=== PATIENT | female | born 1930 | race Caucasian/White ===

== ENCOUNTER 2017-01-26 07:54 | Day surgery (SDC) | payer MEDICARE, BC ==
[2017-01-26] MEDS ORDERED: Midazolam 1 MG/ML 2 ML SDV IV ONE (07:55)
[2017-01-26] MEDS ORDERED: Dexamethasone 4 MG/ML SDV IV ONE (07:55)
[2017-01-26] MEDS ORDERED: Sodium Chloride 0.9% 10 ML Syringe IV ONE (07:55)
[2017-01-26] MEDS ORDERED: Lidocaine 1% 30 ML SDV ONE (11:21)
[2017-01-26] MEDS ORDERED: Apraclonidine 0.5% Ophth Soln 5 ML Bot EYELF ONE (11:22)
[2017-01-26] MEDS ORDERED: Tetracaine HCl/PF 0.5% 4 ML Bottle EYELF ONE (11:22)
[2017-01-26] MEDS ORDERED: Povidone-Iodine 5% Sterile Ophth Soln 30 ML Bottle EYELF ONE ×2 (11:22→11:30)
[2017-01-26] MEDS ORDERED: Diclofenac Sodium 0.1% Ophth Soln 5 ML Bottle EYELF ONE (11:22)
[2017-01-26] MEDS ORDERED: Balanced Salt Solution Ophth Irrig 500 ML Bottle IOCULAR ONE (11:23)
[2017-01-26] MEDS ORDERED: Dexamethasone/Neomycin/Polymyxin B Ophth Oint 3.5 GM Tube EYELF ONE (11:23)
[2017-01-26] MEDS ORDERED: Vancomycin 500 MG SDV EYELF ONE (11:23)
[2017-01-26] MEDS ORDERED: Chondroitin Sulfate/Hyaluronate Sodium Ophth Inj 0.75 ML Syringe EYELF ONE (11:23)
[2017-01-26] MEDS ORDERED: Moxifloxacin 0.5% Ophth Soln 3 ML Bottle EYELF ONE (11:30)
[2017-01-26] MEDS ORDERED: Sodium Chloride 0.9% 10 ML Syringe FLUSH PRN (11:30)
[2017-01-26] MEDS ORDERED: Phenylephrine 10% Ophth Soln 5 ML Bot EYELF PRN (11:30)
[2017-01-26] MEDS ORDERED: Timolol Maleate 0.5% Ophth Soln 5 ML Bottle EYELF ONE (11:30)
[2017-01-26] MEDS ORDERED: Ondansetron 4 MG/2 ML SDV IVPUSH PRN (11:30)
[2017-01-26] MEDS ORDERED: Proparacaine 0.5% Ophth Soln 15 ML Bottle EYELF ONE (11:30)
[2017-01-26] MEDS ORDERED: Cataract Ophth Solution EYELF ONE (11:30)
[2017-01-26] MEDS ORDERED: Phenylephrine 10% Ophth Soln 5 ML Bot EYELF ONE (11:30)
[2017-01-26] MEDS ORDERED: Acetaminophen 325 MG Tab PO PRN (11:30)
--- NOTE | 2017-01-26 12:50 | OR ---
DATE: 01/26/2017 PREOPERATIVE DIAGNOSIS: Cataract, left eye. POSTOPERATIVE DIAGNOSIS: Cataract, left eye. PROCEDURE: Extracapsular cataract extraction with intraocular lens implant, left eye. ANESTHESIA: Topical/local MAC. COMPLICATIONS: None. INDICATION: Visually significant symptomatic cataract. Ms. Gallego was seen in the clinic. Clinical examination revealed mixed nuclear and central cortical cataract. She is symptomatic with complaints of blurred vision, difficulty reading, cannot see numbers. I explained options. I offered cataract surgery and I explained risks including, but not limited to infection, retinal detachment, loss of vision, need for additional surgery, and risks associated with anesthesia. We discussed implant options. She has requested a monofocal implant. She is symptomatic and motivated to proceed. OPERATIVE DESCRIPTION: After informed consent was obtained and the risks, benefits, and alternatives were explained, the patient was brought to the operative suite and topical anesthesia was administered. The patient was then prepped and draped in the sterile fashion and attention was placed on the left eye. A sterile lid speculum was placed into the left eye to allow operative exposure. A full-thickness paracentesis was made in the temporal portion of the operative eye. Preservative-free lidocaine 0.1 mL was injected into the anterior chamber followed by viscoelastic. A full-thickness corneal incision was then made into the anterior chamber. A bent needle cystotome was used to create a small homar in the anterior capsule. The capsulorrhexis forceps were then used to create a 360-degree curvilinear capsulorrhexis. The nucleus was then removed using a phacoemulsification handpiece and the remaining cortical material was then removed with irrigation and aspiration handpiece. Following removal of the cortical material, the capsular bag was then inspected and noted to be free of any holes or tears. Viscoelastic was then injected into the capsular bag and the intraocular lens was inserted into the capsular bag. The viscoelastic material was then removed from both the anterior and posterior chambers and from behind the IOL. The lens and capsular bag were then reinspected. The IOL was well centered and the capsular bag intact. The wound and paracentesis sites were inspected and hydrated with balanced saline solution. Both were found to be self- sealing. The intraocular pressure was assessed digitally and found to be within normal range. A good red reflex was noted at the completion of the procedure. No complications occurred during the operation. At the completion of the procedure, Maxitrol, Voltaren, and Iopidine drops were placed into the operative eye. A sterile eye shield was placed over the operative eye and the patient was transported to the postoperative recovery area having tolerated the procedure well. Postoperative instructions were given along with a postoperative appointment. The patient was advised to call with any questions or concerns. [facility] /[id number]
--- NOTE | 2017-01-26 13:04 | PCM.SN ---
- Free Text/Narrative Note: Post op. Pt discharged home after discharge criteria noted. No anesthesia concerns noted
== END 2017-01-26 13:20 | disposition home or self-care (01) ==
LOC: DL.SDS 07:54
PROVIDERS: ATTEND Ophthalmology
DX: H25.12 Age-related nuclear cataract, left eye (principal); H25.042 Posterior subcapsular polar age-related cataract, left eye; I10 Essential (primary) hypertension; E03.9 Hypothyroidism, unspecified; F41.9 Anxiety disorder, unspecified; F32.9 Major depressive disorder, single episode, unspecified; E78.5 Hyperlipidemia, unspecified; Z79.82 Long term (current) use of aspirin; Z79.899 Other long term (current) drug therapy; Z88.8 Allergy status to other drugs, medicaments and biological substances
CPT/HCPCS: 00142; 66984; A9270; C1780; J1100; J2250; J3370; J7050

== ENCOUNTER 2017-02-23 10:30 | Day surgery (SDC) | payer MEDICARE, BC ==
[~2017-02-23 10:30] MED LIST: Acetaminophen 325 MG Tab PO PRN; Cataract Ophth Solution EYERT ONE; Moxifloxacin 0.5% Ophth Soln 3 ML Bottle EYERT ONE; Ondansetron 4 MG/2 ML SDV IVPUSH PRN; Phenylephrine 10% Ophth Soln 5 ML Bot EYERT ONE; Phenylephrine 10% Ophth Soln 5 ML Bot EYERT PRN; Povidone-Iodine 5% Sterile Ophth Soln 30 ML Bottle EYERT ONE; Proparacaine 0.5% Ophth Soln 15 ML Bottle EYERT ONE; Sodium Chloride 0.9% 10 ML Syringe FLUSH PRN; Timolol Maleate 0.5% Ophth Soln 5 ML Bottle EYERT ONE
[2017-02-23] MEDS ORDERED: Midazolam 1 MG/ML 2 ML SDV IV ONE (10:31)
[2017-02-23] MEDS ORDERED: Dexamethasone 4 MG/ML SDV IV ONE (10:31)
[2017-02-23] MEDS ORDERED: Sodium Chloride 0.9% 10 ML Syringe IV ONE (10:31)
[2017-02-23] MEDS ORDERED: Lidocaine 1% 30 ML SDV ONE (12:01)
[2017-02-23] MEDS ORDERED: Tetracaine HCl/PF 0.5% 4 ML Bottle EYERT ONE (12:02)
[2017-02-23] MEDS ORDERED: Dexamethasone/Neomycin/Polymyxin B Ophth Oint 3.5 GM Tube EYERT ONE (12:02)
[2017-02-23] MEDS ORDERED: Diclofenac Sodium 0.1% Ophth Soln 5 ML Bottle EYERT ONE (12:02)
[2017-02-23] MEDS ORDERED: Povidone-Iodine 5% Sterile Ophth Soln 30 ML Bottle EYERT ONE (12:02)
[2017-02-23] MEDS ORDERED: Apraclonidine 0.5% Ophth Soln 5 ML Bot EYERT ONE (12:02)
[2017-02-23] MEDS ORDERED: Balanced Salt Solution Ophth Irrig 500 ML Bottle IOCULAR ONE (12:03)
[2017-02-23] MEDS ORDERED: Vancomycin 500 MG SDV EYERT ONE (12:03)
[2017-02-23] MEDS ORDERED: Chondroitin Sulfate/Hyaluronate Sodium Ophth Inj 0.75 ML Syringe EYERT ONE (12:03)
--- NOTE | 2017-02-23 14:20 | OR ---
DATE: 02/23/2017 PREOPERATIVE DIAGNOSIS: Complex cataract, right eye, with small pupil/Malyugin ring. POSTOPERATIVE DIAGNOSIS: Complex cataract, right eye, with small pupil/Malyugin ring. PROCEDURE: Extracapsular cataract extraction with intraocular lens implant, right eye; complex cataract of right eye with small pupil/Malyugin ring. ANESTHESIA: Topical/local MAC. COMPLICATIONS: None. INDICATION: Mrs. Gallego was seen in the clinic. Her examination reveals visually significant cataract. She is unhappy with her vision and requested cataract surgery. I explained risks preoperatively including, but not limited to infection, retinal detachment, loss of vision, need for additional surgery, lens subluxation secondary to pseudoexfoliation and risks associated with anesthesia amongst others. We discussed implant options. She requested a monofocal implant. She voiced an understanding with respect to risks and wished to proceed. OPERATIVE DESCRIPTION: After informed consent was obtained and the risks, benefits, and alternatives were explained, the patient was brought to the operative suite and topical anesthesia was administered. The patient was then prepped and draped in the sterile fashion and attention was placed on the right eye. A sterile lid speculum was placed into the right eye to allow operative exposure. A full-thickness paracentesis was made in the temporal portion of the operative eye. Preservative-free lidocaine 0.1 mL was injected into the anterior chamber followed by viscoelastic. A full-thickness corneal incision was then made into the anterior chamber. A bent needle cystotome was used to create a small homar in the anterior capsule. The capsulorrhexis forceps were then used to create a 360-degree curvilinear capsulorrhexis. The nucleus was then removed using a phacoemulsification handpiece and the remaining cortical material was then removed with irrigation and aspiration handpiece. Following removal of the cortical material, the capsular bag was then inspected and noted to be free of any holes or tears. Viscoelastic was then injected into the capsular bag and the intraocular lens was inserted into the capsular bag. The viscoelastic material was then removed from both the anterior and posterior chambers and from behind the IOL. The lens and capsular bag were then reinspected. The IOL was well centered and the capsular bag intact. The wound and paracentesis sites were inspected and hydrated with balanced saline solution. Both were found to be self- sealing. The intraocular pressure was assessed digitally and found to be within normal range. A good red reflex was noted at the completion of the procedure. No complications occurred during the operation. At the completion of the procedure, Maxitrol, Voltaren, and Iopidine drops were placed into the operative eye. A sterile eye shield was placed over the operative eye and the patient was transported to the postoperative recovery area having tolerated the procedure well. Postoperative instructions were given along with a postoperative appointment. The patient was advised to call with any questions or concerns. [facility] /[id number]
== END 2017-02-23 13:53 | disposition home or self-care (01) ==
LOC: DL.SDS 10:30
PROVIDERS: ATTEND Ophthalmology
DX: H26.9 Unspecified cataract (principal); F41.9 Anxiety disorder, unspecified; F32.9 Major depressive disorder, single episode, unspecified; I10 Essential (primary) hypertension; E03.9 Hypothyroidism, unspecified; E78.5 Hyperlipidemia, unspecified; Z79.82 Long term (current) use of aspirin; Z79.899 Other long term (current) drug therapy; Z88.8 Allergy status to other drugs, medicaments and biological substances
CPT/HCPCS: 66984; A9270; J1100; J2250; J3370; J7050; 00142; C1780

== ENCOUNTER 2018-03-02 12:44 | Emergency (ER) | payer MEDICARE, BC ==
--- NOTE | 2018-03-02 14:35 | EDM.PDOC ---
ED HPI GENERAL MEDICAL PROBLEM - General Chief Complaint: General Stated Complaint: INCONTINENCE, OTHER PROBLEMS [id number] Time Seen by Provider: 03/02/18 14:25 Source of Information: Reports: Patient History Limitations: Reports: No Limitations - History of Present Illness INITIAL COMMENTS - FREE TEXT/NARRATIVE: This 87 yo female patient reports to the ED due to feeling abnormal. The patient reports she was going to bathroom this morning when she felt like something was not right. The patient reports she has not been urinating normally today, but the patient does not think she is constipated. The patient reports her lower abdomen feels full, but does not feel like she can go to the bathroom. Onset: Today Duration: Constant Location: Reports: Abdomen Quality: Reports: Ache, Dull Severity: Moderate Improves with: Reports: None Worsens with: Reports: None Context: Reports: Other Associated Symptoms: Reports: No Other Symptoms - Related Data Allergies Allergy/AdvReac Type Severity Reaction Status Date / Time amoxicillin [From Augmentin] AdvReac Diarrhea Verified 03/02/18 13:54 clavulanic acid AdvReac Diarrhea Verified 03/02/18 13:54 [From Augmentin] simvastatin AdvReac Muscle Verified 03/02/18 13:54 Aches Home Meds: Home Meds Ascorbic Acid 500 mg PO DAILY 01/12/17 [History] Aspirin [Halfprin] 81 mg PO DAILY 01/12/17 [History] Biotin 5,000 mcg PO DAILY 01/12/17 [History] Calcium Carbonate/Vitamin D3 [Calcium 600-Vit D3 400 Tablet] 1 tab PO BID [History] Cetirizine [ZyrTEC] 5 mg PO DAILY 01/12/17 [History] Cyanocobalamin (Vitamin B-12) [Vitamin B-12] 100 mcg PO DAILY 01/12/17 [History] Escitalopram [Lexapro] 10 mg PO BEDTIME 01/12/17 [History] Mnetajgn-Lfkxlvv-Usdu 149-Hyal [Glucosamine-Chondr Complex Tab] 1,500 mg PO DAILY 01/12/17 [History] Levothyroxine [Synthroid] 50 mcg PO ACBREAKFAST 01/12/17 [History] Multivitamin [Daily Eliona] 1 tab PO DAILY 01/12/17 [History] [place]-3/DHA/Epa/Fish Oil [[place]-3 Fish Oil 1,000 MG Sfgl] 1,000 mg PO BID [History] Moxifloxacin HCl [Moxifloxacin] 1 drop EYEBOTH QID 01/25/17 [History] Ketorolac [Acular 0.5% Ophth Soln] 1 drop EYERT ASDIRECTED 02/22/17 [History] Stemenhance Se3 2 cap PO DAILY 02/22/17 [History] prednisoLONE Acetate [Prednisolone Acetate] 1 drop EYERT ASDIRECTED 02/22/17 [ History] Past Medical History HEENT History: Reports: Cataract, Impaired Vision Cardiovascular History: Reports: High Cholesterol, Hypertension Gastrointestinal History: Reports: Colon Polyp, Other (See Below) Other Gastrointestinal History: S/P TUBULAR ADENOMA, BENIGN Genitourinary History: Reports: None 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 (See Below) Other SHEAR GRINDER OPERATOR History: FIBROCYSTIC BREAST DISEASE Musculoskeletal History: Reports: Arthritis, Osteoarthritis, Osteoporosis Neurological History: Reports: None Psychiatric History: Reports: Anxiety, Depression Endocrine/Metabolic History: Reports: Hypothyroidism Hematologic History: Reports: None Immunologic History: Reports: None Oncologic (Cancer) History: Reports: None Dermatologic History: Reports: None - Infectious Disease History Infectious Disease History: Reports: Chicken Pox, Measles, Mumps - Past Surgical History Head Surgeries/Procedures: Reports: None HEENT Surgical History: Reports: None, Cataract Surgery, Other (See Below) Other HEENT Surgeries/Procedures: LENS IMPLANT IN LEFT EYE GI Surgical History: Reports: Appendectomy, Colonoscopy, Polypectomy Female Surgical History: Reports: Hysterectomy, Salpingo-Oophorectomy Social & Family History - Family History Family Medical History: Noncontributory HEENT: Reports: Cataract - Tobacco Use Smoking Status *Q: Never Smoker - Caffeine Use Caffeine Use: Reports: Coffee Caffeine Use Comment: 8oz - Recreational Drug Use Recreational Drug Use: No ED ROS GENERAL - Review of Systems Review Of Systems: ROS reveals no pertinent complaints other than HPI. ED EXAM, GENERAL - Physical Exam Exam: See Below Exam Limited By: No Limitations General Appearance: Alert, WD/WN, Mild Distress Eye Exam: Bilateral Eye: EOMI, Normal Inspection, PERRL Ears: Normal External Exam, Normal Canal, Hearing Grossly Normal, Normal TMs Nose: Normal Inspection, Normal Mucosa, No Blood Throat/Mouth: Normal Inspection, Normal Lips, Normal Teeth, Normal Gums, Normal Oropharynx, Normal Voice, No Airway Compromise Head: Atraumatic, Normocephalic Neck: Normal Inspection, Supple, Non-Tender, Full Range of Motion Respiratory/Chest: No Respiratory Distress, Lungs Clear, Normal Breath Sounds, No Accessory Muscle Use, Chest Non-Tender Cardiovascular: Normal Peripheral Pulses, Regular Rate, Rhythm, No Edema, No Gallop, No JVD, No Murmur, No Rub GI/Abdominal: No Organomegaly, No Distention, No Abnormal Bruit, No Mass, Pelvis Stable, Tender (lower abdomen (diffuse)) (Female) Exam: Deferred Rectal (Female) Exam: Deferred Back Exam: Normal Inspection, Full Range of Motion, NT Extremities: Normal Inspection, Normal Range of Motion, Non-Tender, Normal Capillary Refill, No Pedal Edema Neurological: Alert, Oriented, CN II-XII Intact, Normal Cognition, Normal Gait, Normal Reflexes, No Motor/Sensory Deficits Psychiatric: Normal Affect, Normal Mood Skin Exam: Warm, Dry, Intact, Normal Color, No Rash Lymphatic: No Adenopathy Course - Vital Signs Last Recorded V/S: Last Vital Signs Temp 36.9 C 03/02/18 13:49 Pulse 93 03/02/18 13:49 Resp 14 03/02/18 13:49 BP 189/87 H 03/02/18 14:09 Pulse Ox 100 03/02/18 13:49 - Orders/Labs/Meds Orders: Active Orders 24 hr Category Date Time Status Bladder Scan [RC] ASDIRECTED Care 03/02/18 14:29 Ordered CULTURE URINE [RM] Urgent Lab 03/02/18 14:35 Received Labs: Laboratory Tests 03/02/18 03/02/18 03/02/18 Range/Units 14:30 14:30 14:35 WBC 13.6 H (5.0-10.0) 10^3/uL RBC 4.22 (4.2-5.4) 10^6/uL Hgb 12.9 (12.0-16.0) g/dL Hct 39.8 (37.0-47.0) % MCV 94.3 (80-100) fL MCH 30.6 (27.0-34.0) pg MCHC 32.4 L (33.0-35.0) g/dL Plt Count 237 (150-450) 10^3/uL Neut % (Auto) 80.9 H (42.2-75.2) % Lymph % (Auto) 11.3 L (20.5-50.1) % [place] % (Auto) 7.3 (2-8) % Eos % (Auto) 0.4 L (1.0-3.0) % Baso % (Auto) 0.1 (0.0-1.0) % Sodium 134 L (135-145) mmol/L Potassium 4.1 (3.6-5.0) mmol/L Chloride 95 L (101-111) mmol/L Carbon Dioxide 26.0 (21.0-31.0) mmol/L Anion Gap 17.1 BUN 11 (7-18) mg/dL Creatinine 0.6 (0.6-1.3) mg/dL Est Cr Clr Drug Dosing 46.14 mL/min Estimated GFR (MDRD) > 60 BUN/Creatinine Ratio 18.33 Glucose 89 (74-105) mg/dL Calcium 8.9 (8.4-10.2) mg/dl Total Bilirubin 1.5 H (0.2-1.0) mg/dL AST 32 (10-42) IU/L ALT 21 (10-60) IU/L Alkaline Phosphatase 68 (42-121) IU/L Total Protein 7.3 (6.7-8.2) g/dl Albumin 4.1 (3.2-5.5) g/dl Globulin 3.2 Albumin/Globulin Ratio 1.28 Urine Color Yellow (YELLOW) Urine Appearance Cloudy (CLEAR) Urine pH 8.0 (5.0-9.0) Ur Specific [place] 1.025 (1.005-1.030) Urine Protein 30 H (NEGATIVE) Urine Glucose (UA) Negative (NEGATIVE) Urine Ketones 15 H (NEGATIVE) Urine Occult Blood Moderate H (NEGATIVE) Urine Nitrite Negative (NEGATIVE) Urine Bilirubin Negative (NEGATIVE) Urine Urobilinogen 0.2 (0.2-1.0) mg/dL Ur Leukocyte Esterase Trace H (NEGATIVE) Urine RBC 20-30 H /HPF Urine WBC 30-40 H (0-5/HPF) /HPF Ur Epithelial Cells Few /HPF Amorphous Sediment Moderate H (0/HPF) /HPF Urine Bacteria Moderate H (0-FEW/HPF) /HPF Urine Mucus Few H /LPF Departure - Departure Time of Disposition: 15:59 Disposition: Home, Self-Care 01 Condition: Fair Clinical Impression: UTI (urinary tract infection) Qualifiers: Urinary tract infection type: site unspecified Hematuria presence: with hematuria Qualified Code(s): N39.0 - Urinary tract infection, site not specified ; R31.9 - Hematuria, unspecified - Discharge Information *PRESCRIPTION DRUG MONITORING PROGRAM REVIEWED*: Not Applicable *COPY OF PRESCRIPTION DRUG MONITORING REPORT IN PATIENT [place]: Not Applicable Instructions: Urinary Tract Infection, Adult, [id number] Forms: ED Department Discharge Care Plan Goals: The patient was advised of the examination, lab and x-ray results during the visit. The patient was discharged with a script for Macrobid (100 mg) #10 to take 1 by mouth 2 times per day for 5 days. The patient was encouraged to increase her oral fluid intake. If the patient has any additional symptoms or concern, the patient should either visit her primary care facility or return to the emergency department. - My Orders Last 24 Hours: My Active Orders 03/02/18 14:29 Bladder Scan [RC] ASDIRECTED 03/02/18 14:35 CULTURE URINE [RM] Urgent - Assessment/Plan Last 24 Hours: My Active Orders 03/02/18 14:29 Bladder Scan [RC] ASDIRECTED 03/02/18 14:35 CULTURE URINE [RM] Urgent
[2018-03-02 14:56] LABS: ANION GAP 17.1; CHLORIDE,CL 95 mmol/L (101-111); SODIUM,NA 134 mmol/L (135-145)
== END 2018-03-02 16:09 | disposition home or self-care (01) ==
LOC: DL.ED 12:44
DX: N39.0 Urinary tract infection, site not specified (principal); E78.00 Pure hypercholesterolemia, unspecified; I10 Essential (primary) hypertension; F41.9 Anxiety disorder, unspecified; F32.9 Major depressive disorder, single episode, unspecified; E03.9 Hypothyroidism, unspecified; Z88.1 Allergy status to other antibiotic agents; Z88.8 Allergy status to other drugs, medicaments and biological substances; Z79.82 Long term (current) use of aspirin; Z79.899 Other long term (current) drug therapy
CPT/HCPCS: 36415; 74019; 80053; 81001; 85025; 87086; 87088; 87186; 99284

== ENCOUNTER 2020-10-09 05:29 | Day surgery (SDC) | payer MEDICARE, BC ==
[2020-10-09] MEDS ORDERED: Midazolam 1 MG/ML 2 ML SDV IV ONE ×3 (05:30→06:46)
[2020-10-09] MEDS ORDERED: fentaNYL 100 MCG/2 ML SDV IV ONE ×2 (05:30→06:42)
[2020-10-09] MEDS ORDERED: Dextrose 5%-0.45% NaCl 1,000 ML IV SCH (06:10)
[2020-10-09] MEDS ORDERED: fentaNYL 100 MCG/2 ML SDV ONE (06:12)
[2020-10-09] MEDS ORDERED: Midazolam 1 MG/ML 2 ML SDV ONE (06:12)
--- NOTE | 2020-10-09 07:25 | OR ---
DATE: 10/09/2020 PROCEDURE: Esophagogastroduodenoscopy. INSTRUMENT USED: [id number]-HQ190 Olympus video panendoscope. PREMEDICATIONS: No oral or topical anesthesia used. Fentanyl 50 mcg intravenous, Versed 1 mg intravenous. Nasal O2 cannula. The procedure was done under pulse oximetry, BP recording, and cardiac surgeon. INDICATION: The patient with persistent high dysphagia, unexplained. Esophagogastroduodenoscopy is performed for detection of any active erosive lesions, Marc esophagus and/or malignancy also under consideration, esophageal dilatations if indicated, endoscopic hemostasis therapy if needed. The scope was passed with ease. Adequate visualization of the esophagus was made from proximal to distal areas. No upper esophageal lesions identified. No distal esophageal stricture. No uphill or downhill esophageal varices. No Mary-Grigsby tear. No evidence of erosive esophagitis by Manteno criteria. No esophageal polyp or tumor identified. Z-line was seen at around 37 cm distal to the oral verge. Small sliding hiatal hernia was noted. No proximal gastric varices noted. Gastric fundus examination by retroflexion showed diminutive benign-appearing polyp. No gastric ulcer, malignant mass, or vascular ectasia identified. Duodenal bulb showed no ulcer. Visualized second part of the duodenum was unremarkable. No bleeding was noted from any of the visualized areas at the completion of examination. Photographs were taken of the duodenal bulb, gastric antrum, fundus, and distal esophagus. IMPRESSION: 1. Small sliding hiatal hernia. 2. Diminutive gastric fundus polyp. The patient tolerated the procedure well. [facility] /[id number]
== END 2020-10-09 08:58 | disposition home or self-care (01) ==
LOC: DL.ENDO 05:29
PROVIDERS: ATTEND Internal Medicine Gastroenterology
DX: K31.7 Polyp of stomach and duodenum (principal); K44.9 Diaphragmatic hernia without obstruction or gangrene; Z88.1 Allergy status to other antibiotic agents; Z88.8 Allergy status to other drugs, medicaments and biological substances
CPT/HCPCS: 43235; J2250; J3010; J7042

== ENCOUNTER 2021-03-27 11:41 | Emergency (ER) | payer MEDICARE, BC ==
[2021-03-27] MEDS ORDERED: Sodium Chloride 0.9% 10 ML Syringe FLUSH PRN (11:49)
[2021-03-27] MEDS ORDERED: Sodium Chloride 0.9% 1,000 ML IV ONE (12:00)
[2021-03-27 12:29] LABS: AMPHETAMINES,URINE NEGATIVE (NEGATIVE); BARBITURATES,URINE NEGATIVE (NEGATIVE); BENZODIAZEPINE,URINE NEGATIVE (NEGATIVE); MDMA (ECSTASY), URINE NEGATIVE (NEGATIVE); METHADONE,URINE NEGATIVE (NEGATIVE); METHAMPHETAMINES,URINE NEGATIVE (NEGATIVE); OPIATES,URINE NEGATIVE (NEGATIVE); OXYCODONE,URINE NEGATIVE (NEGATIVE); PHENCYCLIDINE,URINE NEGATIVE (NEGATIVE); TCA,URINE NEGATIVE (NEGATIVE)
[2021-03-27 12:44] LABS: ANION GAP 11.1 mEq/L (7-13); CHLORIDE,CL 99 mmol/L (98-107); SODIUM,NA 135 mmol/L (136-145)
== END 2021-03-27 13:45 | disposition home or self-care (01) ==
LOC: DL.ED 11:41
DX: E86.0 Dehydration (principal); E78.00 Pure hypercholesterolemia, unspecified; I10 Essential (primary) hypertension; M19.90 Unspecified osteoarthritis, unspecified site; E03.9 Hypothyroidism, unspecified; Z88.0 Allergy status to penicillin; Z88.8 Allergy status to other drugs, medicaments and biological substances; Z79.899 Other long term (current) drug therapy
CPT/HCPCS: 36415; 70450; 80053; 80305-QW; 80307; 81003; 83605; 83690; 83735; 84443; 85025; 86140; 99285-25; J7030

== ENCOUNTER 2021-11-28 09:46 | Emergency (ER) | payer MEDICARE, BC ==
[2021-11-28] MEDS ORDERED: fentaNYL 100 MCG/2 ML SDV ONE (10:40)
[2021-11-28] MEDS ORDERED: fentaNYL 100 MCG/2 ML SDV IVPUSH ONE (10:40)
[2021-11-28 10:46] LABS: ANION GAP 10.1 mEq/L (7-13)
[2021-11-28] MEDS ORDERED: hydrALAZINE 20 MG/ML SDV IVPUSH ONE (10:50)
[2021-11-28 10:55] LABS: PTT,PARTIAL THROMBOPLSTIN TIME 23.2 SEC (22.0-34.0)
[2021-11-28] MEDS ORDERED: Lidocaine 2% with EPINEPHrine 1:200,000 20 ML SDV INJECT ONE (11:00)
[2021-11-28] MEDS ORDERED: hydrALAZINE 20 MG/ML SDV ONE (11:01)
[2021-11-28] MEDS ORDERED: Silver Nitrate Applicator Each ONE (11:06)
[2021-11-28] MEDS ORDERED: Lidocaine 2% with EPINEPHrine 1:200,000 20 ML SDV ONE (11:08)
[2021-11-28] MEDS ORDERED: Ferric Subsulfate Topical Soln 8 GM (8 ML) Bottle TOP ONE (11:11)
[2021-11-28] MEDS ORDERED: Ferric Subsulfate Topical Soln 8 GM (8 ML) Bottle ONE (11:12)
[2021-11-28] MEDS ORDERED: Acetaminophen 500 MG Tab PO ONE (13:39)
== END 2021-11-28 14:30 | disposition home or self-care (01) ==
LOC: DL.ED 09:46
DX: S01.01XA Laceration without foreign body of scalp, initial encounter (principal); I10 Essential (primary) hypertension; E78.00 Pure hypercholesterolemia, unspecified; Z88.8 Allergy status to other drugs, medicaments and biological substances; Z88.0 Allergy status to penicillin; Z79.899 Other long term (current) drug therapy; Z90.49 Acquired absence of other specified parts of digestive tract; Z90.710 Acquired absence of both cervix and uterus; W18.39XA Other fall on same level, initial encounter
CPT/HCPCS: 12001; 36415; 70450; 80053; 83605; 83735; 85025; 85610; 85730; 96374; 96375; 99284; 99284-25; A9270-GY; J0360; J3010

== ENCOUNTER 2021-12-15 10:53 | Observation (INO) | payer MEDICARE, BC ==
[2021-12-15 11:47] LABS: ANION GAP 11.7 mEq/L (7-13); CHLORIDE,CL 100 mmol/L (98-107); SODIUM,NA 133 mmol/L (136-145)
[2021-12-15 12:03] LABS: ESTIMATED GFR 42 mL/min (>=60)
[2021-12-15] MEDS ORDERED: Sodium Chloride 0.9% 500 ML IV SCH (12:30)
[2021-12-15] MEDS ORDERED: Loperamide 2 MG Cap PO PRN (15:54)
[2021-12-15] MEDS ORDERED: Acetaminophen 325 MG Tab PO PRN (17:31)
[2021-12-15] MEDS ORDERED: Ondansetron 4 MG/2 ML SDV IVPUSH PRN (17:31)
[2021-12-15] MEDS ORDERED: Sodium Bicarbonate 100 MEQ in Dextrose 5% in Water 1,000 ML IV ONE ×2 (17:46)
[2021-12-15] MEDS: Sodium Chloride 0.9% 10 ML Syringe FLUSH PRN (19:39)
[2021-12-15] MEDS: NIRMATRELVIR PO SCH ×2 (22:07→22:20)
[2021-12-15] MEDS: RITONAVIR PO SCH ×2 (22:07→22:20)
[2021-12-15] MEDS: QUEtiapine 25 MG Tab PO SCH (22:14)
[2021-12-15] MEDS: Memantine 10 MG Tab PO SCH (22:14)
[2021-12-16] MEDS: Levothyroxine 50 MCG Tab PO SCH (06:28)
[2021-12-16 07:43] LABS: ANION GAP 9.6 mEq/L (7-13)
[2021-12-16] MEDS: Polyvinyl Alcohol 1.4% Ophth Soln 15 ML Bottle EYEBOTH SCH (09:48)
[2021-12-16] MEDS: Memantine 10 MG Tab PO SCH ×2 (09:49→21:02)
[2021-12-16] MEDS: Multivitamin Tab PO SCH (09:49)
[2021-12-16] MEDS: Enoxaparin 30 MG/0.3 ML Syringe SUBCUT SCH (09:49)
[2021-12-16] MEDS: buPROPion 150 MG Tab.ER PO SCH (09:49)
[2021-12-16] MEDS: Sodium Chloride 0.9% 10 ML Syringe FLUSH PRN (09:50)
[2021-12-16] MEDS: Pravastatin 20 MG Tab PO SCH (09:50)
[2021-12-16] MEDS: QUEtiapine 25 MG Tab PO SCH (09:50)
[2021-12-16] MEDS: Famotidine 20 MG Tab PO SCH (09:50)
[2021-12-16] MEDS: Escitalopram 10 MG Tab PO SCH (09:50)
[2021-12-16] MEDS: NIRMATRELVIR PO SCH ×2 (09:54→21:03)
[2021-12-16] MEDS: RITONAVIR PO SCH ×2 (09:54→21:03)
[2021-12-16] MEDS: Mupirocin Oint 22 GM Tube TOP SCH (10:20)
[2021-12-17] MEDS: Levothyroxine 50 MCG Tab PO SCH (05:44)
[2021-12-17 06:54] LABS: ANION GAP 10.5 mEq/L (7-13)
[2021-12-17] MEDS: Sodium Chloride 0.9% 10 ML Syringe FLUSH PRN (08:19)
[2021-12-17] MEDS: Multivitamin Tab PO SCH (08:19)
[2021-12-17] MEDS: Enoxaparin 30 MG/0.3 ML Syringe SUBCUT SCH (08:19)
[2021-12-17] MEDS: Famotidine 20 MG Tab PO SCH (08:19)
[2021-12-17] MEDS: Pravastatin 20 MG Tab PO SCH (08:19)
[2021-12-17] MEDS: buPROPion 150 MG Tab.ER PO SCH (08:20)
[2021-12-17] MEDS: Escitalopram 10 MG Tab PO SCH (08:20)
[2021-12-17] MEDS: Potassium Chloride 10 MEQ Tab.ER PO SCH (08:20)
[2021-12-17] MEDS: Memantine 10 MG Tab PO SCH ×2 (08:20→20:57)
[2021-12-17] MEDS: RITONAVIR PO SCH ×2 (08:21→20:57)
[2021-12-17] MEDS: NIRMATRELVIR PO SCH ×2 (08:21→20:57)
[2021-12-17] MEDS: metroNIDAZOLE 250 MG Tab PO SCH ×2 (13:40→20:59)
[2021-12-17] MEDS: Polyvinyl Alcohol 1.4% Ophth Soln 15 ML Bottle EYEBOTH SCH (13:41)
[2021-12-17] MEDS: Mupirocin Oint 22 GM Tube TOP SCH (13:41)
[2021-12-17] MEDS: amLODIPine 5 MG Tab PO SCH (23:19)
[2021-12-18] MEDS: metroNIDAZOLE 250 MG Tab PO SCH (06:02)
[2021-12-18] MEDS: Levothyroxine 50 MCG Tab PO SCH (06:02)
[2021-12-18 07:00] LABS: ANION GAP 13.5 mEq/L (7-13)
[2021-12-18] MEDS ORDERED: Mupirocin Oint 22 GM Tube TOP SCH (09:38)
[2021-12-18] MEDS: Memantine 10 MG Tab PO SCH (10:41)
[2021-12-18] MEDS: buPROPion 150 MG Tab.ER PO SCH (10:41)
[2021-12-18] MEDS: Escitalopram 10 MG Tab PO SCH (10:41)
[2021-12-18] MEDS: Potassium Chloride 10 MEQ Tab.ER PO SCH (10:41)
[2021-12-18] MEDS: Multivitamin Tab PO SCH (10:41)
[2021-12-18] MEDS: Pravastatin 20 MG Tab PO SCH (10:42)
[2021-12-18] MEDS: Famotidine 20 MG Tab PO SCH (10:42)
[2021-12-18] MEDS: Polyvinyl Alcohol 1.4% Ophth Soln 15 ML Bottle EYEBOTH SCH (10:42)
[2021-12-18] MEDS: Enoxaparin 30 MG/0.3 ML Syringe SUBCUT SCH (10:42)
[2021-12-18] MEDS: RITONAVIR PO SCH (10:44)
[2021-12-18] MEDS: NIRMATRELVIR PO SCH (10:44)
[2021-12-18] MEDS: Mupirocin Oint 22 GM Tube TOP SCH (10:48)
[2021-12-18] MEDS: amLODIPine 5 MG Tab PO SCH (10:48)
[2021-12-18] MEDS ORDERED: metroNIDAZOLE 250 MG Tab PO SCH (14:00)
[2021-12-19] MEDS ORDERED: Lisinopril 10 MG Tab PO SCH (09:00)
[2021-12-22] MEDS ORDERED: QUEtiapine 25 MG Tab PO SCH (09:00)
== END 2021-12-18 11:00 | disposition home or self-care (01) ==
LOC: DL.ED 10:53 → DL.MS 15:03
PROVIDERS: ADMIT Internal Medicine; ATTEND Internal Medicine
DX: U07.1 COVID-19 (principal); I10 Essential (primary) hypertension; E03.9 Hypothyroidism, unspecified; F03.90 Unspecified dementia, unspecified severity, without behavioral disturbance, psychotic disturbance, mood disturbance, and anxiety; E78.00 Pure hypercholesterolemia, unspecified; M81.0 Age-related osteoporosis without current pathological fracture; Z88.0 Allergy status to penicillin; Z88.8 Allergy status to other drugs, medicaments and biological substances; Z79.899 Other long term (current) drug therapy; Z79.890 Hormone replacement therapy; Z98.890 Other specified postprocedural states
CPT/HCPCS: 36415; 70450; 71045; 80048; 80053; 81001; 82947; 83605; 83880; 84145; 85025; 85379; 97161; 97165; A9270; J1650; J3490; J7040; J7060; 96360; 96361; 96365; 96366; 96372; 99285-25; G0378

== ENCOUNTER 2021-12-24 10:15 | Inpatient (IN) | payer MEDICARE, BC ==
[2021-12-24 11:16] LABS: CHLORIDE,CL 104 mmol/L (98-107); SODIUM,NA 139 mmol/L (136-145)
[2021-12-24 11:17] LABS: ESTIMATED GFR 47 mL/min (>=60)
[2021-12-24 13:31] LABS: PTT,PARTIAL THROMBOPLSTIN TIME 21.9 SEC (22.0-34.0)
[2021-12-24 13:44] LABS: AMPHETAMINES,URINE NEGATIVE (NEGATIVE); BARBITURATES,URINE NEGATIVE (NEGATIVE); BENZODIAZEPINE,URINE NEGATIVE (NEGATIVE); MDMA (ECSTASY), URINE NEGATIVE (NEGATIVE); METHADONE,URINE NEGATIVE (NEGATIVE); METHAMPHETAMINES,URINE NEGATIVE (NEGATIVE); OPIATES,URINE POSITIVE (NEGATIVE); OXYCODONE,URINE NEGATIVE (NEGATIVE); PHENCYCLIDINE,URINE NEGATIVE (NEGATIVE); TCA,URINE NEGATIVE (NEGATIVE)
[2021-12-24] MEDS ORDERED: Acetaminophen 325 MG Tab PO PRN (14:57)
[2021-12-24] MEDS ORDERED: Bisacodyl 5 MG Tab PO PRN (14:57)
[2021-12-24] MEDS ORDERED: Albuterol/Ipratropium 3.0-0.5 MG/3 ML Neb Soln NEB PRN (14:57)
[2021-12-24] MEDS ORDERED: Magnesium Hydroxide 400 MG/5 ML Susp 30 ML Cup PO PRN (14:57)
[2021-12-24] MEDS ORDERED: Ondansetron 4 MG/2 ML SDV IVPUSH PRN (14:57)
[2021-12-24] MEDS ORDERED: Sodium Chloride 0.9% 10 ML Syringe FLUSH PRN (14:57)
[2021-12-24] MEDS ORDERED: Polyethylene Glycol 3350 Powder 17 GM Packet PO PRN (14:57)
[2021-12-24] MEDS ORDERED: Loperamide 2 MG Cap PO PRN (16:49)
[2021-12-24 17:04] LABS: CORONAVIRUS COVID-19 NAA NEGATIVE (NEGATIVE); RESPIRATORY SYNCYTIAL VIR NAA NEGATIVE (NEGATIVE)
[2021-12-24] MEDS: Lactated Ringers 1,000 ML IV SCH (18:32)
[2021-12-24] MEDS: Sodium Chloride 0.9% 10 ML Syringe FLUSH SCH (21:26)
[2021-12-25] MEDS: Lactated Ringers 1,000 ML IV SCH ×2 (03:57→15:40)
[2021-12-25 06:48] LABS: ANION GAP 11.7 mEq/L (7-13)
[2021-12-25] MEDS ORDERED: Carboxymethylcellulose Sodium 1% Ophth Gel 0.4 ML UD EYEBOTH PRN (12:25)
[2021-12-25] MEDS ORDERED: Polyvinyl Alcohol 1.4% Ophth Soln 15 ML Bottle EYEBOTH PRN (12:25)
[2021-12-25] MEDS: Sodium Chloride 0.9% 10 ML Syringe FLUSH SCH ×2 (13:23→20:41)
[2021-12-25] MEDS: Memantine 10 MG Tab PO SCH (20:41)
[2021-12-25] MEDS: QUEtiapine 25 MG Tab PO SCH (20:41)
[2021-12-25] MEDS: Famotidine 20 MG Tab PO SCH (20:41)
[2021-12-26] MEDS ORDERED: Levothyroxine 50 MCG Tab PO SCH (06:00)
[2021-12-26 07:01] LABS: ANION GAP 8.5 mEq/L (7-13)
[2021-12-26] MEDS ORDERED: Saccharomyces Boulardii (Probiotic) 250 MG Cap PO SCH (09:00)
[2021-12-26] MEDS ORDERED: Lisinopril 10 MG Tab PO SCH (09:00)
[2021-12-26] MEDS ORDERED: Multivitamin Tab PO SCH (09:00)
[2021-12-26] MEDS ORDERED: cefTRIAXone 1 GM in Sodium Chloride 0.9% 50 ML IV SCH (09:00)
[2021-12-26] MEDS: Famotidine 20 MG Tab PO SCH (09:37)
[2021-12-26] MEDS: Calcium Carbonate/Vitamin D3 1250 MG-5 MCG Tab PO SCH ×2 (09:37→17:32)
[2021-12-26] MEDS: QUEtiapine 25 MG Tab PO SCH (09:37)
[2021-12-26] MEDS: Memantine 10 MG Tab PO SCH (09:37)
[2021-12-26] MEDS: Sodium Chloride 0.9% 10 ML Syringe FLUSH SCH (09:39)
== END 2021-12-26 19:40 | disposition swing bed (61) | DRG 312 ==
LOC: DL.ED 10:15 → DL.MS 12:41
PROVIDERS: ADMIT Internal Medicine; ATTEND Internal Medicine
DX: I95.2 Hypotension due to drugs (principal); R41.0 Disorientation, unspecified; E87.20 Acidosis, unspecified; I50.9 Heart failure, unspecified; N17.9 Acute kidney failure, unspecified; N39.0 Urinary tract infection, site not specified; R94.6 Abnormal results of thyroid function studies; E83.42 Hypomagnesemia; E88.09 Other disorders of plasma-protein metabolism, not elsewhere classified; E03.9 Hypothyroidism, unspecified; F03.90 Unspecified dementia, unspecified severity, without behavioral disturbance, psychotic disturbance, mood disturbance, and anxiety; R73.9 Hyperglycemia, unspecified; I10 Essential (primary) hypertension; E78.5 Hyperlipidemia, unspecified; H04.123 Dry eye syndrome of bilateral lacrimal glands; K21.9 Gastro-esophageal reflux disease without esophagitis; F41.9 Anxiety disorder, unspecified; F32.A Depression, unspecified; M19.90 Unspecified osteoarthritis, unspecified site; M81.0 Age-related osteoporosis without current pathological fracture; R32 Unspecified urinary incontinence; Z20.822 Contact with and (suspected) exposure to COVID-19; H54.7 Unspecified visual loss; E78.00 Pure hypercholesterolemia, unspecified; D64.9 Anemia, unspecified; E86.0 Dehydration; T43.595A Adverse effect of other antipsychotics and neuroleptics, initial encounter; T42.6X5A Adverse effect of other antiepileptic and sedative-hypnotic drugs, initial encounter; Z79.899 Other long term (current) drug therapy; Z88.8 Allergy status to other drugs, medicaments and biological substances; Z88.1 Allergy status to other antibiotic agents; Z79.890 Hormone replacement therapy; Z86.010 Personal history of colon polyps; Z90.710 Acquired absence of both cervix and uterus; Z86.16 Personal history of COVID-19
CPT/HCPCS: 0241U; 36415; 70450; 71045; 71275; 72125; 80048; 80053; 80305; 80307; 81001; 82947; 83605; 83735; 83880; 84145; 84439; 84443; 84484; 85025; 85379; 85610; 85730; 86140; 87086; 87088; 87186; 93005; 97161; 97165; 97530; 99223; 99233; 99238; 99285; A9270-GY; J0696; J3475; J3490; J7120

== ENCOUNTER 2021-12-25 10:33 | Inpatient (IN) | payer MEDICARE, BC ==
[2021-12-26] MEDS ORDERED: Albuterol/Ipratropium 3.0-0.5 MG/3 ML Neb Soln NEB PRN (20:09)
[2021-12-26] MEDS ORDERED: Polyethylene Glycol 3350 Powder 17 GM Packet PO PRN (20:09)
[2021-12-26] MEDS ORDERED: Acetaminophen 325 MG Tab PO PRN (20:09)
[2021-12-26] MEDS ORDERED: Magnesium Hydroxide 400 MG/5 ML Susp 30 ML Cup PO PRN (20:09)
[2021-12-26] MEDS ORDERED: Ondansetron 4 MG/2 ML SDV IVPUSH PRN (20:09)
[2021-12-26] MEDS ORDERED: Memantine 10 MG Tab PO ONE (22:17)
[2021-12-26] MEDS: QUEtiapine 25 MG Tab PO SCH (22:28)
[2021-12-27] MEDS: Levothyroxine 50 MCG Tab PO SCH (06:27)
[2021-12-27] MEDS: Famotidine 20 MG Tab PO SCH ×2 (10:13→10:15)
[2021-12-27] MEDS: Calcium Carbonate 500 MG Tab.Chew PO SCH (10:13)
[2021-12-27] MEDS: Saccharomyces Boulardii (Probiotic) 250 MG Cap PO SCH (10:13)
[2021-12-27] MEDS: Acetaminophen 500 MG Tab PO PRN (10:13)
[2021-12-27] MEDS: Escitalopram 10 MG Tab PO SCH (10:14)
[2021-12-27] MEDS: QUEtiapine 25 MG Tab PO SCH ×2 (10:14→20:23)
[2021-12-27] MEDS: Lisinopril 10 MG Tab PO SCH (10:14)
[2021-12-27] MEDS: Memantine 10 MG Tab PO SCH ×2 (10:15→20:22)
[2021-12-27] MEDS: Pravastatin 20 MG Tab PO SCH (10:15)
[2021-12-27] MEDS: Multivitamin Tab PO SCH (10:19)
[2021-12-27] MEDS: cefTRIAXone 1 GM in Sodium Chloride 0.9% 50 ML IV SCH (10:41)
[2021-12-27] MEDS ORDERED: Memantine 10 MG Tab PO ONE (22:15)
[2021-12-28] MEDS: Levothyroxine 50 MCG Tab PO SCH (06:08)
[2021-12-28] MEDS: cefTRIAXone 1 GM in Sodium Chloride 0.9% 50 ML IV SCH (08:52)
[2021-12-28] MEDS: Escitalopram 10 MG Tab PO SCH (09:00)
[2021-12-28] MEDS: Acetaminophen 500 MG Tab PO PRN ×2 (09:00→22:24)
[2021-12-28] MEDS: Saccharomyces Boulardii (Probiotic) 250 MG Cap PO SCH (09:02)
[2021-12-28] MEDS: QUEtiapine 25 MG Tab PO SCH ×2 (09:03→22:24)
[2021-12-28] MEDS: Memantine 10 MG Tab PO SCH ×2 (09:03→22:24)
[2021-12-28] MEDS: Multivitamin Tab PO SCH (09:03)
[2021-12-28] MEDS: Famotidine 20 MG Tab PO SCH (09:04)
[2021-12-28] MEDS: Lisinopril 10 MG Tab PO SCH (09:05)
[2021-12-28] MEDS: Pravastatin 20 MG Tab PO SCH (09:05)
[2021-12-28] MEDS: Calcium Carbonate 500 MG Tab.Chew PO SCH (09:06)
[2021-12-28] MEDS ORDERED: Mineral Oil/Petrolatum Ophth Oint 3.5 GM Tube EYEBOTH PRN (16:44)
[2021-12-29] MEDS: Levothyroxine 50 MCG Tab PO SCH (06:29)
[2021-12-29] MEDS: cefTRIAXone 1 GM in Sodium Chloride 0.9% 50 ML IV SCH (10:12)
[2021-12-29] MEDS: Famotidine 20 MG Tab PO SCH (10:18)
[2021-12-29] MEDS: Escitalopram 10 MG Tab PO SCH (10:19)
[2021-12-29] MEDS: Saccharomyces Boulardii (Probiotic) 250 MG Cap PO SCH (10:19)
[2021-12-29] MEDS: Multivitamin Tab PO SCH (10:19)
[2021-12-29] MEDS: Pravastatin 20 MG Tab PO SCH (10:19)
[2021-12-29] MEDS: Lisinopril 10 MG Tab PO SCH (10:20)
[2021-12-29] MEDS: QUEtiapine 25 MG Tab PO SCH ×2 (10:20→21:18)
[2021-12-29] MEDS: Memantine 10 MG Tab PO SCH ×2 (10:20→21:18)
[2021-12-29] MEDS: Calcium Carbonate 500 MG Tab.Chew PO SCH (10:25)
[2021-12-29] MEDS ORDERED: Carboxymethylcellulose Sodium 1% Ophth Gel 0.4 ML UD EYEBOTH PRN (15:06)
[2021-12-29] MEDS: Acetaminophen 500 MG Tab PO PRN (19:50)
[2021-12-29] MEDS: [UNRECOGNIZED DRUG - OTHER] EYEBOTH SCH (21:20)
[2021-12-30] MEDS: Levothyroxine 50 MCG Tab PO SCH (06:22)
[2021-12-30] MEDS: Escitalopram 10 MG Tab PO SCH (09:33)
[2021-12-30] MEDS: Memantine 10 MG Tab PO SCH ×2 (09:33→21:32)
[2021-12-30] MEDS: Pravastatin 20 MG Tab PO SCH (09:33)
[2021-12-30] MEDS: Multivitamin Tab PO SCH (09:33)
[2021-12-30] MEDS: QUEtiapine 25 MG Tab PO SCH ×2 (09:34→21:33)
[2021-12-30] MEDS: Famotidine 20 MG Tab PO SCH (09:35)
[2021-12-30] MEDS: Calcium Carbonate 500 MG Tab.Chew PO SCH (09:35)
[2021-12-30] MEDS: Saccharomyces Boulardii (Probiotic) 250 MG Cap PO SCH (09:35)
[2021-12-30] MEDS: Lisinopril 10 MG Tab PO SCH (09:35)
[2021-12-30] MEDS: cefTRIAXone 1 GM in Sodium Chloride 0.9% 50 ML IV SCH (09:36)
[2021-12-30] MEDS: Acetaminophen 500 MG Tab PO PRN (10:54)
[2021-12-30] MEDS: Acetaminophen 325 MG Tab PO SCH ×2 (17:13→21:31)
[2021-12-30] MEDS: [UNRECOGNIZED DRUG - OTHER] EYEBOTH SCH (21:34)
[2021-12-31] MEDS: Levothyroxine 50 MCG Tab PO SCH ×2 (04:45→05:15)
[2021-12-31] MEDS: Famotidine 20 MG Tab PO SCH (10:08)
[2021-12-31] MEDS: Acetaminophen 325 MG Tab PO SCH ×4 (10:09→21:42)
[2021-12-31] MEDS: Multivitamin Tab PO SCH (10:11)
[2021-12-31] MEDS: Pravastatin 20 MG Tab PO SCH (10:11)
[2021-12-31] MEDS: Memantine 10 MG Tab PO SCH ×2 (10:12→21:40)
[2021-12-31] MEDS: Calcium Carbonate 500 MG Tab.Chew PO SCH (10:12)
[2021-12-31] MEDS: Lisinopril 10 MG Tab PO SCH (10:12)
[2021-12-31] MEDS: Escitalopram 10 MG Tab PO SCH (10:13)
[2021-12-31] MEDS: QUEtiapine 25 MG Tab PO SCH ×2 (10:13→21:41)
[2021-12-31] MEDS: Menthol 10%/Methyl Salicylate 15% 85 GM Tube TOP PRN (18:03)
[2021-12-31] MEDS: [UNRECOGNIZED DRUG - OTHER] EYEBOTH SCH (21:43)
[2022-01-01] MEDS: Levothyroxine 50 MCG Tab PO SCH (05:57)
[2022-01-01] MEDS: Menthol 10%/Methyl Salicylate 15% 85 GM Tube TOP PRN ×2 (06:13→21:41)
[2022-01-01] MEDS: Calcium Carbonate 500 MG Tab.Chew PO SCH (08:57)
[2022-01-01] MEDS: Acetaminophen 325 MG Tab PO SCH ×4 (08:58→21:41)
[2022-01-01] MEDS: QUEtiapine 25 MG Tab PO SCH ×2 (08:59→21:39)
[2022-01-01] MEDS: Famotidine 20 MG Tab PO SCH (08:59)
[2022-01-01] MEDS: Pravastatin 20 MG Tab PO SCH (09:00)
[2022-01-01] MEDS: Lisinopril 10 MG Tab PO SCH (09:00)
[2022-01-01] MEDS: Escitalopram 10 MG Tab PO SCH (09:01)
[2022-01-01] MEDS: Multivitamin Tab PO SCH (09:01)
[2022-01-01] MEDS: Memantine 10 MG Tab PO SCH ×2 (09:01→21:39)
[2022-01-01] MEDS: [UNRECOGNIZED DRUG - OTHER] EYEBOTH SCH (21:42)
[2022-01-02] MEDS: Levothyroxine 50 MCG Tab PO SCH (05:59)
[2022-01-02] MEDS: Famotidine 20 MG Tab PO SCH (08:42)
[2022-01-02] MEDS: Memantine 10 MG Tab PO SCH ×2 (08:42→21:44)
[2022-01-02] MEDS: Multivitamin Tab PO SCH (08:43)
[2022-01-02] MEDS: Pravastatin 20 MG Tab PO SCH (08:43)
[2022-01-02] MEDS: Calcium Carbonate 500 MG Tab.Chew PO SCH (08:43)
[2022-01-02] MEDS: Lisinopril 10 MG Tab PO SCH (08:43)
[2022-01-02] MEDS: Acetaminophen 325 MG Tab PO SCH ×4 (08:44→21:40)
[2022-01-02] MEDS: QUEtiapine 25 MG Tab PO SCH ×2 (08:45→21:41)
[2022-01-02] MEDS: Escitalopram 10 MG Tab PO SCH (08:46)
[2022-01-02] MEDS: Menthol 10%/Methyl Salicylate 15% 85 GM Tube TOP PRN ×2 (10:50→21:43)
[2022-01-02] MEDS: [UNRECOGNIZED DRUG - OTHER] EYEBOTH SCH (21:44)
[2022-01-03] MEDS: Levothyroxine 50 MCG Tab PO SCH (05:54)
[2022-01-03] MEDS: Escitalopram 10 MG Tab PO SCH (09:28)
[2022-01-03] MEDS: Famotidine 20 MG Tab PO SCH (09:29)
[2022-01-03] MEDS: Multivitamin Tab PO SCH (09:30)
[2022-01-03] MEDS: QUEtiapine 25 MG Tab PO SCH ×2 (09:30→22:06)
[2022-01-03] MEDS: Memantine 10 MG Tab PO SCH ×2 (09:30→22:07)
[2022-01-03] MEDS: Calcium Carbonate 500 MG Tab.Chew PO SCH (09:31)
[2022-01-03] MEDS: Lisinopril 10 MG Tab PO SCH (09:31)
[2022-01-03] MEDS: Acetaminophen 325 MG Tab PO SCH ×4 (09:32→22:07)
[2022-01-03] MEDS: Pravastatin 20 MG Tab PO SCH (09:33)
[2022-01-03] MEDS: Menthol 10%/Methyl Salicylate 15% 85 GM Tube TOP PRN (12:30)
[2022-01-03] MEDS: [UNRECOGNIZED DRUG - OTHER] EYEBOTH SCH (22:07)
[2022-01-04] MEDS: Levothyroxine 50 MCG Tab PO SCH (05:04)
[2022-01-04] MEDS: Pravastatin 20 MG Tab PO SCH (09:36)
[2022-01-04] MEDS: Escitalopram 10 MG Tab PO SCH (09:36)
[2022-01-04] MEDS: QUEtiapine 25 MG Tab PO SCH ×2 (09:36→22:33)
[2022-01-04] MEDS: Acetaminophen 325 MG Tab PO SCH ×4 (09:36→22:32)
[2022-01-04] MEDS: Lisinopril 10 MG Tab PO SCH (09:37)
[2022-01-04] MEDS: Multivitamin Tab PO SCH (09:37)
[2022-01-04] MEDS: Memantine 10 MG Tab PO SCH ×2 (09:37→22:33)
[2022-01-04] MEDS: Calcium Carbonate 500 MG Tab.Chew PO SCH (09:37)
[2022-01-04] MEDS: Famotidine 20 MG Tab PO SCH (09:37)
[2022-01-04] MEDS: [UNRECOGNIZED DRUG - OTHER] EYEBOTH SCH (22:34)
[2022-01-04] MEDS: Menthol 10%/Methyl Salicylate 15% 85 GM Tube TOP PRN (22:42)
[2022-01-05] MEDS: Levothyroxine 50 MCG Tab PO SCH (06:24)
[2022-01-05] MEDS: Famotidine 20 MG Tab PO SCH (08:15)
[2022-01-05] MEDS: Pravastatin 20 MG Tab PO SCH (08:16)
[2022-01-05] MEDS: Calcium Carbonate 500 MG Tab.Chew PO SCH (08:16)
[2022-01-05] MEDS: Escitalopram 10 MG Tab PO SCH (08:16)
[2022-01-05] MEDS: Lisinopril 10 MG Tab PO SCH (08:17)
[2022-01-05] MEDS: Acetaminophen 325 MG Tab PO SCH (08:18)
[2022-01-05] MEDS: Memantine 10 MG Tab PO SCH (08:18)
[2022-01-05] MEDS: QUEtiapine 25 MG Tab PO SCH (08:18)
[2022-01-05] MEDS: Multivitamin Tab PO SCH (08:18)
== END 2022-01-05 11:00 | disposition home or self-care (01) | DRG 690 ==
LOC: DL.MS 12-26 19:40
PROVIDERS: ADMIT Internal Medicine; ATTEND Internal Medicine
DX: N39.0 Urinary tract infection, site not specified (principal); R53.1 Weakness; D50.9 Iron deficiency anemia, unspecified; E88.09 Other disorders of plasma-protein metabolism, not elsewhere classified; F03.90 Unspecified dementia, unspecified severity, without behavioral disturbance, psychotic disturbance, mood disturbance, and anxiety; I10 Essential (primary) hypertension; E78.5 Hyperlipidemia, unspecified; E03.9 Hypothyroidism, unspecified; H04.123 Dry eye syndrome of bilateral lacrimal glands; K21.9 Gastro-esophageal reflux disease without esophagitis; F41.9 Anxiety disorder, unspecified; F32.A Depression, unspecified; M19.90 Unspecified osteoarthritis, unspecified site; M81.0 Age-related osteoporosis without current pathological fracture; N60.19 Diffuse cystic mastopathy of unspecified breast; E78.00 Pure hypercholesterolemia, unspecified; R32 Unspecified urinary incontinence; F11.90 Opioid use, unspecified, uncomplicated; H54.7 Unspecified visual loss; E83.42 Hypomagnesemia; Z79.890 Hormone replacement therapy; Z88.1 Allergy status to other antibiotic agents; Z86.16 Personal history of COVID-19; Z79.899 Other long term (current) drug therapy; Z88.8 Allergy status to other drugs, medicaments and biological substances; Z86.010 Personal history of colon polyps; Z86.19 Personal history of other infectious and parasitic diseases; Z98.49 Cataract extraction status, unspecified eye; Z90.710 Acquired absence of both cervix and uterus
CPT/HCPCS: 36415; 80048; 83735; 85025; 97110-GO; 97110-GP; 97116-GP; 97161-GP; 97165-GO; 97530-GO; 97535-GO; 99238; 99305; A9270-GY; J0696

== ENCOUNTER 2022-07-28 19:21 | Emergency (ER) | payer MEDICARE, BC ==
[2022-07-28] MEDS ORDERED: Sodium Chloride 0.9% 10 ML Syringe FLUSH PRN (19:31)
[2022-07-28 19:39] LABS: BASOPHILS PERCENT AUTO 0.8 % (0.0-1.0); EOSINOPHILS PERCENT AUTO 2.6 % (1.0-3.0); HEMATOCRIT 39.8 % (37.0-47.0); HEMOGLOBIN 12.9 g/dL (12.0-16.0); LYMPHOCYTES PERCENT AUTO 43.9 % (20.5-50.1); MEAN CORPUSCULAR HEMOGLOBIN 31.7 pg (27.0-34.0); MEAN CORPUSCULAR HGB CONC 32.4 g/dL (33.0-35.0); MEAN CORPUSCULAR VOLUME 97.8 fL (80-100); MONOCYTES PERCENT AUTO 11.1 % (2-8); NEUTROPHILS PERCENT AUTO 41.6 % (42.2-75.2); PLATELET COUNT,PLT 271 10^3/uL (150-450); RED BLOOD CELL COUNT 4.07 10^6/uL (4.2-5.4); WHITE BLOOD CELL COUNT,WBC 6.1 10^3/uL (5.0-10.0)
[2022-07-28] MEDS: hydrALAZINE 20 MG/ML SDV IVPUSH ONE ×2 (19:39→20:09)
[2022-07-28] MEDS ORDERED: Diphtheria,Pertussis(Acell),Tetanus Vaccine 0.5 ML Syringe IM ONE (19:41)
[2022-07-28 20:01] LABS: A/G RATIO 1.3; ANION GAP 12.9 mEq/L (7-13); BILIRUBIN TOTAL 0.6 mg/dL (0.2-1.0); BUN/CREATININE RATIO 17.6 (No establ ref range); CALCIUM 8.9 mg/dL (8.5-10.1); CREATININE 0.68 mg/dL (0.55-1.02); EST CRCL DRUG DOSING (CG) 40.29 mL/min; POTASSIUM,K 3.9 mmol/L (3.5-5.1); PROTEIN TOTAL,TP 7.2 g/dL (6.4-8.2)
[2022-07-28] MEDS ORDERED: Lidocaine 1% 5 ML VIAL INJECT ONE (20:04)
[2022-07-28] MEDS ORDERED: Bacitracin/Neomycin/Polymyxin B Oint 28.4 GM Tube TOP ONE (21:19)
[2022-07-28] MEDS ORDERED: Cephalexin 500 MG Cap PO ONE (21:29)
== END 2022-07-29 00:03 ==
LOC: DL.ED 19:21
DX: S01.81XA Laceration without foreign body of other part of head, initial encounter (principal); S61.311A Laceration without foreign body of left index finger with damage to nail, initial encounter; R42 Dizziness and giddiness; I16.0 Hypertensive urgency; E78.00 Pure hypercholesterolemia, unspecified; I10 Essential (primary) hypertension; M19.90 Unspecified osteoarthritis, unspecified site; E03.9 Hypothyroidism, unspecified; Z79.899 Other long term (current) drug therapy; Z88.0 Allergy status to penicillin; Z88.8 Allergy status to other drugs, medicaments and biological substances; Z23 Encounter for immunization; W19.XXXA Unspecified fall, initial encounter; W22.8XXA Striking against or struck by other objects, initial encounter; Y92.121 Bathroom in nursing home as the place of occurrence of the external cause
CPT/HCPCS: 12002; 12013; 36415; 70450; 73140-F1; 80053; 84484; 85025; 90471; 90715; 93005; 96374; 99285-25; A9270-GY; J0360; J3490